=== PATIENT | female | born 1960 | race Caucasian/White ===

== ENCOUNTER 2019-01-02 07:05 | Day surgery (SDC) | payer BC ==
[2019-01-02] MEDS ORDERED: PROPOFOL INJ 200 MG/20 ML VIAL IV ONE (07:54)
[2019-01-02 09:09] VITALS: BP 96/60
--- NOTE | 2019-01-02 10:36 | Operative Report ---
Operative Report DATE OF SURGERY: 01/02/19 Operative Report: The risks benefits and alternatives of the procedure explained to the patient in detail and informed consent is obtained.A GIF Olympus video scope was inserted into the patient's mouth and hypopharynx ,the esophagus is identified intubated and insufflated ,the scope was then advanced through the esophagus stomach and duodenum ,retroflexion maneuver is done, the esophagus stomach and first and second portions of the duodenum examined PREOPERATIVE DIAGNOSIS: Dysphagia POSTOPERATIVE DIAGNOSIS: Gastritis status post biopsy without Helicobacter pylori. Esophagitis versus Marroquin's status post biopsy. Hiatal hernia. Schatzki's ring that is broken OPERATION: EGD with biopsy SURGEON: BRINA ROMEO ANESTHESIA: LMAC TISSUE REMOVED OR ALTERED: As noted above. COMPLICATIONS: None. ESTIMATED BLOOD LOSS: None. INTRAOPERATIVE FINDINGS: As noted above. PROCEDURE: Patient tolerated the procedure well. No immediate postprocedure complications are noted. Patient is discharged in good condition. Discharge date 01/02/2019. Discharge diet: Regular. Discharge activity: Regular. 2 to 3-week follow-up to discuss findings. Patient is instructed to call the office or proceed to the emergency room should there be any further questions. Wait on the pathology.
== END 2019-01-02 09:10 | disposition home or self-care (01) ==
LOC: END 07:05
PROVIDERS: ATTEND Internal Medicine Gastroenterology
DX: K29.50 Unspecified chronic gastritis without bleeding (principal); K44.9 Diaphragmatic hernia without obstruction or gangrene; K22.2 Esophageal obstruction; E78.5 Hyperlipidemia, unspecified; E05.90 Thyrotoxicosis, unspecified without thyrotoxic crisis or storm; E03.9 Hypothyroidism, unspecified; R06.02 Shortness of breath; Z79.899 Other long term (current) drug therapy; Z79.51 Long term (current) use of inhaled steroids
CPT/HCPCS: 43239; 88305 ×2; J2704; 731

== ENCOUNTER 2019-04-17 08:53 | Day surgery (SDC) | payer BC ==
[~2019-04-17 08:53] MED LIST: PROPOFOL INJ 200 MG/20 ML VIAL IV ONE
[2019-04-17] MEDS ORDERED: LIDOCAINE 2% INJ-PF (20 MG/ML) 10 ML AMPUL ONE (09:01)
[2019-04-17] MEDS ORDERED: ONDANSETRON HCL INJ/PF 4 MG/2 ML SDV ONE (10:23)
[2019-04-17 10:29] VITALS: BP 104/61
--- NOTE | 2019-04-17 12:17 | Operative Report ---
Operative Report DATE OF SURGERY: 04/17/19 Operative Report: The risks benefits and alternatives of the procedure explained to the patient in detail and informed consent is obtained.A GIF Olympus video scope was inserted into the patient's mouth and hypopharynx,the esophagus is identified intubated and insufflated ,the scope was then advanced through the esophagus stomach and duodenum ,retroflexion maneuver is done the esophagus stomach and first and second portions of the duodenum examined PREOPERATIVE DIAGNOSIS: Marroquin's esophagus POSTOPERATIVE DIAGNOSIS: Marroquin's esophagus status post radiofrequency ablation OPERATION: EGD with radiofrequency ablation SURGEON: BRINA ROMEO ANESTHESIA: LMAC TISSUE REMOVED OR ALTERED: None. COMPLICATIONS: None. ESTIMATED BLOOD LOSS: None. INTRAOPERATIVE FINDINGS: As noted above. PROCEDURE: Patient tolerated the procedure well. No immediate postprocedure complications are noted. Patient is discharged in good condition. Discharge date 04/17/2019. Discharge diet: Regular. Discharge activity: Regular. 2 to 3-week follow-up to discuss findings. Patient is instructed to call the office or proceed to the emergency room should there be any further problems or questions.
== END 2019-04-17 10:25 | disposition home or self-care (01) ==
LOC: END 08:53
PROVIDERS: ATTEND Internal Medicine Gastroenterology
DX: K22.719 Barrett's esophagus with dysplasia, unspecified (principal); K22.2 Esophageal obstruction; K21.9 Gastro-esophageal reflux disease without esophagitis; Z79.899 Other long term (current) drug therapy; Z79.51 Long term (current) use of inhaled steroids; M79.7 Fibromyalgia
CPT/HCPCS: 43270; 00731; J2405; J2704; J3490; 731

== ENCOUNTER 2019-08-11 15:30 | Emergency (ER) | payer BC ==
--- NOTE | 2019-08-11 16:20 | ER Document Report ---
ED Medical Screen (RME) - General Chief Complaint: Urinary Problem Stated Complaint: URINARY ISSUE Time Seen by Provider: 08/11/19 16:19 Primary Care Provider: ILYA HERRERA MD [Primary Care Provider] - Follow up as needed Information source: Patient Notes: This a 58-year-old female states she is got tenderness and inflammation on the right side of her labia. TRAVEL OUTSIDE OF THE [place] IN LAST 30 DAYS: No - Related Data Allergies/Adverse Reactions: haloperidol [From Haldol] Allergy (Severe, Verified 04/08/19 10:22) AMS, UNABLE TO SPEAK FOR THREE DAYS codeine [Codeine] Allergy (Verified 04/08/19 10:22) Past Medical History - Past Medical History Cardiac Medical History: Denies: Hx Coronary Artery Disease, Hx Heart Attack, Hx Hypertension Pulmonary Medical History: Reports: Hx Bronchitis, Hx Pneumonia Denies: Hx Asthma, Hx COPD Neurological Medical History: Reports: Hx Seizures - A CHILD. Denies: Hx Cerebrovascular Accident Musculoskeltal Medical History: Reports Hx Arthritis, Reports Hx Musculoskeletal Deformity, Reports Hx Musculoskeletal Trauma - Immunizations Immunizations up to date: No Hx Diphtheria, Pertussis, Tetanus Vaccination: No Physical Exam - Vital signs Vitals: Temp Pulse Resp BP Pulse Ox 98.4 F 91 20 110/67 93 08/11/19 15:40 08/11/19 15:40 08/11/19 15:40 08/11/19 15:40 08/11/19 15:40 Course - Vital Signs Vital signs: Temp Pulse Resp BP Pulse Ox 98.4 F 91 20 110/67 93 08/11/19 15:40 08/11/19 15:40 08/11/19 15:40 08/11/19 15:40 08/11/19 15:40 Doctor's Discharge - Discharge Referrals: ILYA HERRERA MD [Primary Care Provider] - Follow up as needed
[2019-08-11 18:47] LABS: APPEARANCE,URINE CLEAR; BILIRUBIN,URINE NEGATIVE (NEGATIVE); COLOR,URINE YELLOW; GLUCOSE, URINE NEGATIVE (NEGATIVE); KETONES,URINE NEGATIVE (NEGATIVE); PROTEIN,URINE NEGATIVE (NEGATIVE); UROBILINOGEN,URINE NEGATIVE mg/dL (<2.0)
[2019-08-11] MEDS ORDERED: PHENAZOPYRIDINE HCL 200 MG TABLET PO ONE (18:48)
[2019-08-11] MEDS ORDERED: NITROFURANTOIN MONOHYD/M-CRYST 100 MG CAPSULE PO ONE (19:30)
--- NOTE | 2019-08-11 19:36 | ER Document Report ---
ED General - General Chief Complaint: Urinary Problem Stated Complaint: URINARY ISSUE Time Seen by Provider: 08/11/19 16:19 Primary Care Provider: ILYA HERRERA MD [Primary Care Provider] - Follow up as needed Notes: 58-year-old female presents emergency department complaining of dysuria for the past week that worsened this weekend and got especially intense today. Patient states that currently she feels like the right side of her vagina is swollen shut and that it is red and very tender and it hurts whenever the urine runs across it. She denies any discharge, denies any fevers, admits sweats and chills. Denies any new sexual contacts. States that she chronically has UTIs, usually takes Pyridium but has run out. Has not been able to see Dr. Herrera yet for the symptoms. TRAVEL OUTSIDE OF THE [place] IN LAST 30 DAYS: No - Related Data Allergies/Adverse Reactions: haloperidol [From Haldol] Allergy (Severe, Verified 04/08/19 10:22) AMS, UNABLE TO SPEAK FOR THREE DAYS codeine [Codeine] Allergy (Verified 04/08/19 10:22) Past Medical History - General Information source: Patient - Social History Smoking Status: Current Every Day Smoker Frequency of alcohol use: None Drug Abuse: None Family History: Reviewed & Not Pertinent - Past Medical History Cardiac Medical History: Denies: Hx Coronary Artery Disease, Hx Heart Attack, Hx Hypertension Pulmonary Medical History: Reports: Hx Bronchitis, Hx Pneumonia Denies: Hx Asthma, Hx COPD Neurological Medical History: Reports: Hx Seizures - A CHILD. Denies: Hx Cerebrovascular Accident Musculoskeletal Medical History: Reports Hx Arthritis, Reports Hx Musculoskeletal Deformity, Reports Hx Musculoskeletal Trauma - Immunizations Immunizations up to date: No Hx Diphtheria, Pertussis, Tetanus Vaccination: No Review of Systems - Review of Systems Constitutional: See HPI, Chills, Diaphoresis. denies: Fever EENT: No symptoms reported Genitourinary: See HPI Female Genitourinary: See HPI -: Yes All other systems reviewed and negative Physical Exam - Vital signs Vitals: Temp Pulse Resp BP Pulse Ox 98.4 F 91 20 110/67 93 08/11/19 15:40 08/11/19 15:40 08/11/19 15:40 08/11/19 15:40 08/11/19 15:40 Interpretation: Normal - Notes Notes: GENERAL: Alert, interacts well. No acute distress. HEAD: Normocephalic, atraumatic EYES: Pupils equal, round and reactive to light, extraocular movements intact. ENT: Oral mucosa moist, tongue midline. NECK: Full range of motion, supple, trachea midline. LUNGS: Clear to auscultation bilaterally, no wheezes, rales or rhonchi, no respiratory distress. HEART: Regular rate and rhythm, no murmurs, gallops, rubs. ABDOMEN: Soft, nontender, nondistended, bowel sounds present in all 4 quadrants. : There are excoriations and a small amount of swelling with erythema noted in the crease between the right sided internal and external labia. No vesicles and no blistering. No discharge. EXTREMITIES: Moves all 4 extremities spontaneously, no edema. No cyanosis. NEUROLOGICAL: Alert and oriented x3, normal speech. PSYCH: Normal mood, normal affect. SKIN: Warm, Dry. Course - Re-evaluation Re-evalutation: 08/11/19 19:33 Urinalysis shows possibly very mild urinary tract infection, treat with Macrobid. Pain is more likely coming from the excoriations and the skin breakdown to the labia, there may be a fungal component to this, patient is prescribed antifungal cream with barrier cream. Discharged home. - Vital Signs Vital signs: Temp Pulse Resp BP Pulse Ox 98.4 F 91 20 110/67 93 08/11/19 15:40 08/11/19 15:40 08/11/19 15:40 08/11/19 15:40 08/11/19 15:40 - Laboratory Laboratory results interpreted by me: 08/11/19 16:30 Leukocyte Esterase Rfl TRACE H Discharge - Discharge Clinical Impression: Vulvovaginal candidiasis Acute cystitis Qualifiers: Hematuria presence: without hematuria Qualified Code(s): N30.00 - Acute cystitis without hematuria Condition: Stable Disposition: HOME, SELF-CARE Additional Instructions: Please apply the cream to your most painful area of your vagina 4 times a day for the next week. Please take the antibiotics as directed until they are gone. Please also take the antifungal pill by mouth. Return to the emergency department for fevers or worsening pain. Please take the Pyridium as directed [id number] for burning with urination. Prescriptions: Clotrimazole/Betamethasone Dip [Clotrimazole-Betamethasone Lot] 30 ml TP QID #1 lotion Fluconazole [Diflucan] 150 mg PO ONCE PRN #1 tablet PRN Reason: Nitrofurantoin Monohyd/M-Cryst [Macrobid 100 mg Capsule] 100 mg PO BID #14 cap Phenazopyridine HCl [Pyridium 200 mg Tablet] 200 mg PO TID #15 tablet Referrals: ILYA HERRERA MD [Primary Care Provider] - Follow up as needed
[2019-08-11] MEDS ORDERED: FLUCONAZOLE 100 MG TABLET PO ONE (19:38)
[2019-08-11 19:57] VITALS: BP 105/74
== END 2019-08-11 19:57 | disposition home or self-care (01) ==
LOC: ER 15:30
DX: N30.00 Acute cystitis without hematuria (principal); B37.3 Candidiasis of vulva and vagina; R39.198 Other difficulties with micturition; Z88.8 Allergy status to other drugs, medicaments and biological substances; F17.200 Nicotine dependence, unspecified, uncomplicated
CPT/HCPCS: 99283; 81001; J3490; J8499